=== PATIENT | male | born 1950 | race Caucasian/White ===

== ENCOUNTER 2019-02-09 18:14 | Inpatient (IN) | payer OTHER ==
[~2019-02-09] VITALS: Ht 160 cm; Wt 55.3 kg
[2019-02-09 18:24] VITALS: BP_SYST 124
--- NOTE | 2019-02-09 20:30 | NUR ---
Patient to ER bed 1 to gown for evaluation. Side rails up
--- NOTE | 2019-02-09 20:32 | NUR ---
Dr. Romo bedside for Pt eval
--- NOTE | 2019-02-09 20:40 | NUR ---
Pt BIB family to ED C/O prostate disorder with 1 day of gradual onset, intermittent, moderate fever associated with nausea, vomiting, dysuria, mild hematuria, and intermittent body aches. Tmax was 104F. Patient had a growth removed from his prostate 2 years ago. 9 days ago, patient had surgery to remove the scar tissue. No other injuries and or complaints noted. VSS no s/s of acute distress. Resting on gurney rails up
[2019-02-09] MEDS ORDERED: ACETAMINOPHEN 325 MG TABLET PO ONE (20:45)
[2019-02-09] MEDS ORDERED: NACL 0.9% 1,000 ML IV ONE ×2 (20:45→22:30)
[2019-02-09] MEDS ORDERED: ONDANSETRON HCL 4 MG/2 ML VIAL IVP ONE (20:45)
[2019-02-09 21:17] LABS: HEMATOCRIT 38.9 % (36-54); MEAN CORPUSCULAR HEMOGLOBIN 28 pg (27-31); MEAN CORPUSCULAR HGB CONC 33 % (32-36); MEAN CORPUSCULAR VOLUME 83 fL (79.0-98.0); PLATELET COUNT (AUTO) 190 K/uL (130-430); RED BLOOD CELL COUNT(AUTO) 4.67 MIL/uL (4.2-6.2); RED CELL DISTRIBUTION WIDTH 13.5 % (9.0-15.0); WHITE BLOOD COUNT (AUTO) 18.6 K/uL (4.8-10.8)
[2019-02-09 21:27] LABS: CALCIUM 8.7 mg/dL (8.4-11.0); CREATININE 1.09 mg/dL (0.55-1.30); POTASSIUM 4.2 mmol/L (3.5-5.1)
[2019-02-09 21:30] LABS: INR 1.1 (0.80-1.20); PROTHROMBIN TIME 11.1 SECS (9.5-12.5)
[2019-02-09 21:33] LABS: ALBUMIN 3.4 g/dL (3.4-4.8); TOTAL BILIRUBIN 0.9 mg/dL (0.0-1.0)
--- NOTE | 2019-02-09 21:35 | NUR ---
VSS no s/s of acute distress. Resting on gurney rails up
[2019-02-09 21:40] LABS: BAND % (MANUAL) 8 % (0-6); LYMPHOCYTES % (MANUAL) 4 % (20-46); MONOCYTES % (MANUAL) 5 % (0-11)
[2019-02-09 21:41] LABS: BASOPHILS % (MANUAL) 0 % (0-2); EOSINOPHILS % (MANUAL) 0 % (0-7)
[2019-02-09 22:37] LABS: BILIRUBIN,URINE NEGATIVE (NEGATIVE); BLOOD, URINE 3+ (NEGATIVE); CLARITY/URINE CLEAR (CLEAR); COLOR,URINE YELLOW (YELLOW); GLUCOSE,URINE NEGATIVE (NEGATIVE); KETONES,URINE NEGATIVE (NEGATIVE); LEUKOCYTE ESTERASE ,URINE 3+ (NEGATIVE); NITRITE, URINE POSITIVE (NEGATIVE); PROTEIN URINE 1+ (NEGATIVE); UROBILINOGEN,URINE 0.2 (0.2-1.0)
[2019-02-09 22:45] LABS: BACTERIA,URINE MANY /HPF (None Seen); RBC,URINE >100 /HPF (0-3); WBC,URINE >100 /HPF (0-3)
[2019-02-09] MEDS ORDERED: TAMS0.4C96 PO (23:28)
[2019-02-09] MEDS ORDERED: OXYB10TA2 PO (23:29)
[2019-02-09] MEDS ORDERED: INSULIN REGULAR, HUMAN 100 UNITS/ML, 10 ML VIAL (humuLIN R) SUBCUT PRN (23:30)
--- NOTE | 2019-02-09 23:30 | NUR ---
Medication reconciliation completed with information provided by patient/med bottles. Any prior medication reconciliation on file was reviewed and corrected.
--- NOTE | 2019-02-10 00:03 | NUR ---
ADMIT NOTE Received pt from ER to the floor with a diagnosis of sepsis. Admission process initiated. patient oriented to pain management, safety and call light-teach back done.
--- NOTE | 2019-02-10 00:03 | NUR ---
Transfer to Telemetry via ACLS protocol. Licensed nurse present. IV present no signs or symptoms of infiltration.
--- NOTE | 2019-02-10 00:03 | NUR ---
Patient will be admitted to care of Dr. Good. Admitted to Telemetry unit. Belongings list completed. Summary report printed. Report will be given at bedside.
[2019-02-10 00:10] VITALS: BP_SYST 141
--- NOTE | 2019-02-10 00:10 | NUR ---
Opening notes Patient resting comfortably in bed. No signs of distress noted. Breathing even and unlabored. Patient alert and oriented, burmese and kyrgyz speaking. IV patent and intact, infusing fluids. Peña catheter in place, draining yellow urine. Oriented patient to room and call light. Call light with the patient. Safety precautions in place. Son at bedside.
[2019-02-10] MEDS: PIPERACILLIN/TAZO 3.375 GM in NS 50 ML IV SCH ×5 (00:50→23:40)
[2019-02-10] MEDS ORDERED: PIPERACILLIN/TAZOBACTAM 3.375 GM/VIAL (ZOSYN) IV ONE (00:53)
[2019-02-10] MEDS: NACL 0.9% 1,000 ML IV SCH ×3 (00:56→20:34)
--- NOTE | 2019-02-10 02:47 | NUR ---
Sleeping No signs of distress noted. Breathing even and unlabored. IVF infusing well. Call light with the patient. Safety precautions in place.
--- NOTE | 2019-02-10 04:30 | NUR ---
Sleeping No signs of distress noted. Breathing even and unlabored. IVF infusing well. Call light with the patient. Safety precautions in place.
--- NOTE | 2019-02-10 06:55 | NUR ---
Closing notes Patient resting comfortably in bed. No signs of distress noted. Breathing even and unlabored. IVF infusing well. Accucheck 104. No insulin necessary. Safety precautions in place. Will endorse care to day shift RN.
--- NOTE | 2019-02-10 08:00 | NUR ---
ASSUMPTION OF CARE: RECEIVED PT A/A/OX4, DX:RISK FOR INJURY, R/T SEPSIS. VITAL SIGNS STABLE, NO C/O PAIN, NO S/S OF DISTRESS OR DISCOMFORT, BREATH SOUNDS ARE CLEAR, BREATHING UNLABORED, IV SITE INTACT, PATENT, NO REDNESS OR SWELLING, ORIENTED TO UNIT, CALL LIGHT PLACED WITHIN REACH, WILL CONT' TO MONITOR AND ASSESS.
[2019-02-10 08:45] VITALS: BP_SYST 114
--- NOTE | 2019-02-10 09:00 | NUR ---
TRAFFIC CHIEF: MORNING MEDS GIVEN, PER ORDERED BY Sarah, TOLERATED WELL, WILL CONT' TO MONITOR AND ASSESS.
[2019-02-10] MEDS: ACETAMINOPHEN 325 MG TABLET PO PRN ×2 (09:16→17:43)
[2019-02-10] MEDS ORDERED: TAMSULOSIN HCL 0.4 MG CAP PO ONE (10:45)
[2019-02-10] MEDS ORDERED: OXYBUTYNIN CHLORIDE 5 MG TABLET PO ONE ×2 (10:45→11:00)
[2019-02-10 11:35] VITALS: BP_SYST 109
--- NOTE | 2019-02-10 12:00 | NUR ---
GLUCOSE MONITORING: BLOOD SUGAR YLVMA=882, NO COVERAGE REQUIRED, NO DISTRESS, NO C/O PAIN, WILL CONT' WITH POC.
--- NOTE | 2019-02-10 13:00 | NUR ---
VISIT: DR. SMITH AT BEDSIDE FOR ASSESSMENT OF PT, DISCUSSED POC, VERBALIZED UNDERSTANDING, WILL CONT' TO MONITOR AND ASSESS.
--- NOTE | 2019-02-10 15:00 | NUR ---
NURSES NOTES: PT RESTING IN POSITION OF COMFORT, NEEDS MET, FAMILY MEMBER AT BEDSIDE, CALL LIGHT PLACED WITHIN REACH, NO S/S OF DISTRESS, F/C/REMAINS INTACT, WITH CLEAR YELLOW URINE, DRAINING TO GRAVITY, NO C/O PAIN, WILL CONT' WITH PLAN OF CARE.
[2019-02-10 15:34] VITALS: BP_SYST 102
--- NOTE | 2019-02-10 17:00 | NUR ---
GLUCOSE MONITORING: BLOOD SUGAR LEVEL=95, NO COVERAGE REQUIRED, NO DISTRESS, NO C/O PAIN, WILL CONT' WITH POC.
--- NOTE | 2019-02-10 18:00 | NUR ---
END OF SHIFT: PT ASSISTED TO BATHROOM, PT EXHIBITS STEADY GAIT, NO C/O PAIN, NO S/S OF DISTRESS, FAMILY MEMBER (SON) AT BEDSIDE, BOTH REORIENTED TO UNIT AND CALL LIGHT, VERBALIZED UNDERSTANDING, WILL ENDORSE TO SENIOR ORACLE DBA NURSE.
--- NOTE | 2019-02-10 19:30 | NUR ---
Opening notes Received report. Patient is resting in bed. No signs of distress noted. Breathing even and unlabored. IV patent and intact, infusing fluids. Updated patient and patient's son plan of care. Both verbalized understanding. VSS. Patient afebrile. No needs at this time. Call light with the patient. Safety precautions in place.
[2019-02-10 20:08] VITALS: BP_SYST 102
[2019-02-10] MEDS: OXYBUTYNIN CHLORIDE 5 MG TABLET PO SCH (20:28)
[2019-02-10] MEDS ORDERED: OXYBUTYNIN CHLORIDE 5 MG TABLET PO SCH (21:00)
--- NOTE | 2019-02-10 21:00 | NUR ---
Accucheck 117 No insulin coverage necessary. No signs of distress noted. Breathing even and unlabored. IVF infusing well. Call light with the patient. Safety precautions in place.
--- NOTE | 2019-02-11 | NUR ---
Resting Patient resting comfortably in bed. No signs of distress noted. Breathing even and unlabored. IV ABX hung. No needs at this time. Call light with the patient. Safety precautions in place.
[2019-02-11 01:14] VITALS: BP_SYST 120
--- NOTE | 2019-02-11 02:26 | NUR ---
Sleeping No signs of distress noted. Breathing even and unlabored. IVF infusing well. Urine draining from rivera. No needs. Call light with the patient. Safety precautions in place.
--- NOTE | 2019-02-11 04:21 | NUR ---
CONSULTATION PAGED/CALLED Reason for Consultation: SEPSIS Person Who was Notified:[place] Consulting Physician: Pelon AREVALO Group Home Worker Specialty: ID Ordering Physician: LUIS
--- NOTE | 2019-02-11 04:40 | NUR ---
Sleeping No signs of distress noted. Breathing even and unlabored. IV patent and intact, infusing fluids. Call light with the patient. Safety precautions in place.
[2019-02-11] MEDS: NACL 0.9% 1,000 ML IV SCH ×2 (05:30→12:39)
[2019-02-11] MEDS: PIPERACILLIN/TAZO 3.375 GM in NS 50 ML IV SCH ×3 (06:11→18:04)
--- NOTE | 2019-02-11 06:51 | NUR ---
Closing notes Patient resting comfortably in bed. No signs of distress noted. Breathing even and unlabored. IVF infusing well. Patient had BM this AM. All needs met throughout the shift. Call light with the patient. Safety precautions in place. Will endorse care to day shift RN.
[2019-02-11 07:00] LABS: BASOPHILS % (AUTO) 0.3 % (0.0-2.0); EOSINOPHILS # (AUTO) 0.5 K/uL (0.0-0.4); EOSINOPHILS % (AUTO) 4.2 % (0.0-4.0); HEMATOCRIT 35.4 % (36-54); HEMOGLOBIN 11.9 g/dL (14.0-18.0); LYMPHOCYTES # (AUTO) 0.7 K/uL (1.0-5.5); LYMPHOCYTES % (AUTO) 6.6 % (20.5-51.5); MEAN CORPUSCULAR HEMOGLOBIN 28 pg (27-31); MEAN CORPUSCULAR HGB CONC 34 % (32-36); MEAN CORPUSCULAR VOLUME 84 fL (79.0-98.0); MONOCYTES # (AUTO) 0.5 K/uL (0.0-1.0); MONOCYTES % (AUTO) 4.1 % (1.7-9.3); NEUTROPHILS # (AUTO) 9.3 K/uL (1.8-7.7); NEUTROPHILS % (AUTO) 84.8 % (40.0-70.0); PLATELET COUNT (AUTO) 149 K/uL (130-430); RED BLOOD CELL COUNT(AUTO) 4.22 MIL/uL (4.2-6.2); RED CELL DISTRIBUTION WIDTH 14.1 % (9.0-15.0)
[2019-02-11 07:24] LABS: CALCIUM 8.2 mg/dL (8.4-11.0); CREATININE 1.04 mg/dL (0.55-1.30); POTASSIUM 3.7 mmol/L (3.5-5.1)
--- NOTE | 2019-02-11 07:30 | NUR ---
opening not patient is resting in bed, A&ox4, assessment completed, educated utilization specialist light system and plan of care, patient verbalized understanding, no signs of distress, IV fluids running, rivera in place, fall/safety precautions in place. Addendum: 02/11/19 at 0801 by Rand Faulkner RN OPENING NOTE
[2019-02-11 08:08] VITALS: BP_SYST 131
[2019-02-11] MEDS: OXYBUTYNIN CHLORIDE 5 MG TABLET PO SCH ×2 (08:13→22:04)
[2019-02-11] MEDS: TAMSULOSIN HCL 0.4 MG CAP PO SCH (08:13)
--- NOTE | 2019-02-11 09:15 | NUR ---
rounds patient is resting in bed, patient took shower, IV fluids running, no signs of distress, no needs addressed at this time, fall/safety precautions in place.
--- NOTE | 2019-02-11 11:20 | NUR ---
blood sugar check check done and no sliding scale needed at this time, family at the bedside, no other needs addressed at this time, fall/safety precautions in place, IV fluids running.
[2019-02-11 12:00] VITALS: BP_SYST 140
--- NOTE | 2019-02-11 13:50 | NUR ---
Dr Good rounds saw patient in room, Dr Good put order for patient to be transferred to the east side because patient was complaining of the room being cold, I talked to the patient and he said that he is fine with his room as long as someone turns up the temperature in the room, no other needs at this time, IV fluids running, fall/safety precautions in place.
[2019-02-11 16:40] VITALS: BP_SYST 134
[2019-02-11] MEDS: ACETAMINOPHEN 325 MG TABLET PO PRN (16:49)
--- NOTE | 2019-02-11 17:00 | NUR ---
blood sugar check and prn tylenol blood sugar check done and no sliding scale needed at this time, patient had oral temp of 100.3, prn tylenol given, patient tolerated well, no other needs at this time, IV fluids running, fall/safety precautions in place.
--- NOTE | 2019-02-11 19:04 | NUR ---
closing note patient is resting in bed, no signs of distress, IV fluids running, rivera in place, fall/safety precautions in place, will endorse report to noc shift nurse to continue with care, monitor temp and to be checked orally instead of temporal, patient walks steady in room.
[2019-02-11 21:04] VITALS: BP_SYST 135
--- NOTE | 2019-02-11 22:15 | NUR ---
ASSIST PATIENT OUT OF BED AMBULATES TO REST ROOM STEADY GAIT FALL MEASURES IMPLEMENTED & EFFECTIVE .
--- NOTE | 2019-02-11 22:39 | NUR ---
FOLOW UP CONSULTATION PAGED/CALLED Reason for Consultation: SEPSIS Person Who was Notified: KARYNA Consulting Physician: JOSEPH Babysitter Specialty: Ordering Physician:
--- NOTE | 2019-02-12 | NUR ---
DITROPAN 5 MG PO ADMINISTER ORDERED PATIENT FARRAR CATHETER FOR URINE REMAINS PATENT FREE FLOW OF CLEAR YELLOW URINE NOTED .
[2019-02-12] MEDS: PIPERACILLIN/TAZO 3.375 GM in NS 50 ML IV SCH ×4 (02:04→17:30)
[2019-02-12] MEDS: NACL 0.9% 1,000 ML IV SCH ×2 (02:05→12:57)
--- NOTE | 2019-02-12 02:25 | NUR ---
ZOSYN 3.375 GM IVPB ADMINISTER ORDERED NO ADVERSE REACTION NOTED SKIN RASH FREE ALSO DRY & WARM .
[2019-02-12 03:22] VITALS: BP_SYST 134
--- NOTE | 2019-02-12 04:45 | NUR ---
HOURLY ROUNDING PATIENT RESTING HOB ELEVATED VERBALLY RESPONSIVE CHEST MOVEMENT REMAINS SYMMETRICAL UNLABORED CALL DUNCAN WITH PATIENT .
--- NOTE | 2019-02-12 05:06 | NUR ---
FALL SAFETY PRECAUTIONS NO DIABETIC REACTION VERBALLY RESPONSIVE CALL DUNCAN WITH PATIENT .
[2019-02-12 06:52] LABS: CALCIUM 8.6 mg/dL (8.4-11.0); POTASSIUM 3.7 mmol/L (3.5-5.1)
[2019-02-12 06:56] LABS: BASOPHILS % (AUTO) 0.6 % (0.0-2.0); EOSINOPHILS # (AUTO) 0.4 K/uL (0.0-0.4); HEMATOCRIT 37.9 % (36-54); HEMOGLOBIN 12.8 g/dL (14.0-18.0); LYMPHOCYTES # (AUTO) 0.8 K/uL (1.0-5.5); LYMPHOCYTES % (AUTO) 11.6 % (20.5-51.5); MEAN CORPUSCULAR HEMOGLOBIN 28 pg (27-31); MEAN CORPUSCULAR HGB CONC 34 % (32-36); MEAN CORPUSCULAR VOLUME 84 fL (79.0-98.0); MONOCYTES # (AUTO) 0.4 K/uL (0.0-1.0); MONOCYTES % (AUTO) 5.9 % (1.7-9.3); NEUTROPHILS # (AUTO) 5.4 K/uL (1.8-7.7); NEUTROPHILS % (AUTO) 75.9 % (40.0-70.0); PLATELET COUNT (AUTO) 192 K/uL (130-430); RED BLOOD CELL COUNT(AUTO) 4.52 MIL/uL (4.2-6.2); RED CELL DISTRIBUTION WIDTH 13.9 % (9.0-15.0)
[2019-02-12 07:29] LABS: WHITE BLOOD COUNT (AUTO) 7.1 K/uL (4.8-10.8)
[2019-02-12 08:00] VITALS: BP_SYST 137
--- NOTE | 2019-02-12 09:00 | NUR ---
WILDLAND FIRE OPERATIONS SPECIALIST: MORNING MEDS GIVEN, PER ORDERED BY Sarah, TOLERATED WELL, WILL CONT' WITH POC.
[2019-02-12] MEDS: TAMSULOSIN HCL 0.4 MG CAP PO SCH (09:05)
[2019-02-12] MEDS: OXYBUTYNIN CHLORIDE 5 MG TABLET PO SCH (09:05)
--- NOTE | 2019-02-12 11:30 | NUR ---
GLUCOSE MONITORING: BLOOD SUGAR NFOGH=894, NO COVERAGE REQUIRED, NO DISTRESS, NO C/O PAIN, WILL CONT' WITH POC.
--- NOTE | 2019-02-12 11:30 | NUR ---
CONCERT PROMOTER: MORNING MEDS GIVEN, PER ORDERED BY Sarah, TOLERATED WELL, WILL CONT' TO MONITOR AND ASSESS.
[2019-02-12 12:00] VITALS: BP_SYST 135
--- NOTE | 2019-02-12 12:59 | NUR ---
Nutrition Assessment (short note d/t lack of time) A- RD reviewed pt's current EMR including diet Hx, physician notes, nursing notes, pertinent labs/meds/procedures, care trends and care activity. Pt seen resting in bed at time of RD visit. He reported of improving appetite and stated that he ate 100% of breakfast. Pt declined ONS and modular and stated that he will just improve his PO intake to meet estimated needs. Pt denied being diagnosed w/ DM in the past but is aware that BG lab values has been elevated since admission. RD informed pt of [facility] [place] diet ordered by MD and rationale of diet order, pt verbalized understanding. Ht: 5'3 Wt: 122#/ 55 kg BMI: 21.6 kg/m2 %IBW: 98 IBW: 124#/56 kg ESTIMATED NUTRITIONAL REQUIREMENTS CALORIES/DAY: 6736-5972 kcal/day (30-35 kcal/kg CBW for Sepsis) PROTEIN/DAY: 83-110 gm/day (1.5-2 gm/kg CBW for sepsis) FLUID/DAY: 1.7-1.9 L/day (1ml/calorie for maintenance) D: 1. Increased nutrient needs r/t metabolic demands AEB estimated calories and protein needs for sepsis. 2. Altered nutrition related labs r/t unknown etiology AEB elevated BG and POC BG laboratory values. I: Recommend [facility] diet per MD orders. M: Monitor appetite and PO intake w/ goal of pt meeting at least 75% of estimated nutritional needs, labs trending WNL, normal GI function, skin integrity/wt maintenance. E: RD to F/U within 3-5 days VASYL TRAN
--- NOTE | 2019-02-12 13:05 | NUR ---
Production Broacher Recommendation Recommend [facility] per MD orders. Please see Nutritional Assessment for details. CHELSEA, RD
--- NOTE | 2019-02-12 15:00 | NUR ---
NURSES NOTES: PT RESTING IN POSITION OF COMFORT, NEEDS MET, FAMILY MEMBERS AT BEDSIDE, CALL LIGHT PLACED WITHIN REACH, NO S/S OF DISTRESS, WILL CONT' TO MONITOR, WILL CONT' WITH PLAN OF CARE.
--- NOTE | 2019-02-12 17:00 | NUR ---
GLUCOSE MONITORING: BLOOD SUGAR LEVEL=90, NO COVERAGE REQUIRED, WILL CONT' TO MONITOR AND ASSESS.
[2019-02-12 17:03] VITALS: BP_SYST 137
--- NOTE | 2019-02-12 19:15 | NUR ---
OPENING NOTES PATIENT RECEIVED SITTING IN CHAIR FAMILY AT BEDSIDE FOR DISCHARGE TONIGHT. BREATHING UNLABORED ON ROOM AIR. DENIES PAIN AT THIS TIME. FARRAR CATH DRAINING TO CLEAR YELLOW URINE. INFORMED PATIENT AND FAMILY WILL HAVE TO COMPLETE DISCHARGE PACKET THEN PATIENT CAN LEAVE.
[2019-02-12 19:40] VITALS: BP_SYST 135
--- NOTE | 2019-02-12 20:25 | NUR ---
DISCHARGE COMPLETED DISCHARGE PACKET GIVEN TO PATIENT. DISCHARGE INSTRUCTIONS PROVIDED TO PATIENT AND SON. VITAL SIGNS STABLE. PATIENT TO GO HOME WITH AFRRAR CATH PER SON PATIENT ALREADY HAVE APPOINTMENT WITH UROLOGIST THIS TUESDAY TO REMOVE FARRAR. PATIENT WHEELED TO LOBBY BY ALIZE MAGUIRE ACCOMPANIED BY FAMILY IN STABLE CONDITION.
--- NOTE | 2019-02-27 16:22 | NUR ---
DISCHARGE FOLLOW UP PHONE CALL SUSAN/ JAYDE ROJAS PHONED PATIENT, . PATIENT STATED HE IS FEELING BETTER. HE UNDERSTOOD HIS DISCHARGE INSTRUCTIONS. ALREADY FILLED HIS PRESCRIPTION AND FOLLOWED UP WITH HIS PCP AND UROLOGIST. HE HAS NO QUESTIONS OR CONCERNS. HE WILL CALL THE HOSPITAL IF HE HAS ANY QUESTIONS IN THE FUTURE.
== END 2019-02-12 20:20 | disposition home or self-care (01) | DRG 872 ==
LOC: SED 18:14 → STU 23:28 → SMU 02-10 13:00
PROVIDERS: ADMIT Internal Medicine; ATTEND Internal Medicine
DX: A41.9 Sepsis, unspecified organism (principal); N12 Tubulo-interstitial nephritis, not specified as acute or chronic; R65.20 Severe sepsis without septic shock; N40.0 Benign prostatic hyperplasia without lower urinary tract symptoms; Z79.899 Other long term (current) drug therapy
CPT/HCPCS: 36415; 71045; 80048; 80053; 81000-TC; 82550-TC; 82962; 83605; 84484; 85007; 85025; 85027; 85610-TC; 85730-TC; 86710; 87040-TC; 87081; 87086; 87186-TC; 93005; 96361; 96365; 96375; 99285; G0378; J1815; J1956; J2405; J2543; J7030